=== PATIENT | male | born 1960 | race Caucasian/White ===

== ENCOUNTER 2020-08-07 06:48 | Outpatient (CLI) | payer OTHER, SELFPAY ==
--- NOTE | ~2020-08-07 | MR_ITS ---
EXAMINATION: MR foot RT wo con DATE: 08/07/2020 08:03 INDICATION: Right foot osteoarthritis. TECHNIQUE: Magnetic resonance imaging (MRI) of the right foot was performed without intravenous contr ast. Sequences included sagittal STIR FSE and T1-weighted FSE and short-axis and long-axis T1-weighte d FSE and T2-weighted FS FSE. COMPARISON: None FINDINGS: There is an ulcer plantar to head of second metatarsal. There is dorsal dislocation of seco nd proximal phalanx with respect to the metatarsal. There are fractures of the heads of the second, t hird, and fourth metatarsals. The distal fracture fragment of third metatarsal demonstrates dorsal di splacement, impaction, and periosteal reaction. There is bone marrow edema involving the majority of second metatarsal and the proximal portion of second proximal phalanx. There is an effusion of second metatarsophalangeal joint that is contiguous with inflammation from the plantar ulcer. There is mild osteoarthritis of some of the interphalangeal joints and some of the midfoot joints. There is modera te osteoarthritis of first metatarsophalangeal joint and fourth and fifth tarsometatarsal joints. Lis franc ligament is intact. There is complete tear of the flexor tendons at second proximal interphalan geal joint. There is moderate to severe fatty atrophy of the musculature. There is edema of the muscu lature, consistent with [id number] denervation. There is subcutaneous edema with a dorsal pr edominance. IMPRESSION: 1. Ulcer plantar to head of second metatarsal with osteomyelitis of second metatarsal and base of sec ond proximal phalanx. 2. Dislocation of second metatarsophalangeal joint. Complete tear of the flexor tendons at second pro ximal interphalangeal joint. 3. Fractures of the heads of the second, third, and fourth metatarsals. Reviewed, dictated and finalized at location A. [facility] IMPRESSION: 1. Ulcer plantar to head of second metatarsal with osteomyelitis of second meta tarsal and base of second proximal phalanx. 2. Dislocation of second metatarsophalangeal joint. Complete tear of the flexor tendons at second proximal interphalangeal joint. 3. Fractures of the heads of the second, third, and fourth metatarsals.
== END 2020-08-07 06:49 | disposition home or self-care (01) ==
PROVIDERS: Visit Provider Podiatrist Foot & Ankle Surgery
DX: M86.171 Other acute osteomyelitis, right ankle and foot (principal); S92.321A Displaced fracture of second metatarsal bone, right foot, initial encounter for closed fracture; S92.331A Displaced fracture of third metatarsal bone, right foot, initial encounter for closed fracture; S92.341A Displaced fracture of fourth metatarsal bone, right foot, initial encounter for closed fracture; X58.XXXA Exposure to other specified factors, initial encounter
CPT/HCPCS: 73718

== ENCOUNTER 2020-09-11 07:36 | Outpatient (RCR) | payer OTHER, SELFPAY ==
[2020-08-10 13:34] VITALS: BMI 38.2
--- NOTE | 2020-09-18 09:49 | PCWOUND ---
WOCN NOTE Patient spouse left message to cancel. patient is not feeling well. she states patient will back to reschedule.
== END 2020-10-23 12:42 | disposition home or self-care (01) ==
LOC: ANHWOC 07:36
PROVIDERS: Visit Provider Podiatrist Foot & Ankle Surgery
DX: E11.621 Type 2 diabetes mellitus with foot ulcer (principal); L97.519 Non-pressure chronic ulcer of other part of right foot with unspecified severity
CPT/HCPCS: 99212; 99213; A9270; G0463

== ENCOUNTER 2022-07-08 10:20 | Emergency (ER) | payer OTHER, SELFPAY ==
[2022-07-08 10:34] VITALS: BP 171/110; PULSE 120; RESP 16; TEMP 36.6; O2SAT 98
--- NOTE | 2022-07-08 10:48 | ED.SKABFB ---
HPI - Skin/Abscess/Foreign Bdy General Chief complaint: Skin/Abscess/Foreign Body Stated complaint: rt shoulder infection Time Seen by Provider: 07/08/22 10:48 Source: patient and RN notes reviewed Mode of arrival: ambulatory Limitations: dementia History of Present Illness HPI narrative: 62-year-old male with history of diabetes presents with concern for a skin infection on his right upper arm. He reports it has been there for approximately 1 week, his has gotten some pus out of it. He denies general malaise, fever body aches, chills. MD complaint: abscess/boil Related Data Home Medications Medication Instructions Recorded Confirmed diazepam 2 mg tablet mg 07/08/22 Allergies Allergy/AdvReac Type Severity Reaction Status Date / Time ALEXANDRA Inhibitors Allergy Unknown Verified 10/29/18 09:55 No Known Allergies Allergy Unverified 07/29/18 09:49 Review of Systems Review of Systems: CONSTITUTIONAL: Denies malaise, chills, sweats, or fever. CARDIOVASCULAR: Denies chest pain, palpitations, or edema. RESPIRATORY: Denies cough or dyspnea. SKIN: Reports redness, swelling, purulent drainage to the right posterior upper arm. Denies vesicles, bullae, numbness, pain beyond proportion MUSCULOSKELETAL: Denies joint pain or myalgia. NEUROLOGIC: Denies headache. All systems reviewed & are unremarkable except as noted in HPI and below PMFSH Family History Family History (Updated 02/23/16 @ 10:51 by DOCTOR UNKNOWN) Other Family history of obesity Family history of type 2 diabetes mellitus Social History Social History Smoking status: Never smoker Alcohol intake: current Gender identity (if verbalized by the patient): Male Sexual Orientation (if Verbalized by the Patient): Straight or Heterosexual Comments At time of signature, agree with nursing past medical, surgical, social and family history. There is no relevant family history pertinent to the presenting complaint Exam Narrative: GENERAL: Well-appearing, well-nourished, and in no acute distress. HEAD: Normocephalic, atraumatic. EYES: PERRLA, conjunctivae clear ENT: Mucous membranes moist. NECK: Supple. No lymphadenopathy CHEST: Clear to auscultation. No respiratory distress. HEART: Regular rate and rhythm. SKIN: Warm, dry. 10 cm x 7 cm area of Erythema, induration, tenderness, warmth with sharp margins noted posterior right upper arm. No vesicles, bullae, necrosis, ecchymosis, crepitus noted. NEURO: Alert and oriented x3. PSYCH: Normal mood and affect Course Course Emergency Course: Patient is aware of diagnosis, understands and agrees to treatment plan. Anticipatory guidance given. Patient agrees to follow-up as directed and is aware of reasons to seek care at the emergency department. Portions of this record may have been created with voice recognition software Level of Care: Express Care Visit Vital Signs Vital signs: Vital Signs Temperature 97.9 F 07/08/22 10:34 Pulse Rate 120 H 07/08/22 10:34 Respiratory Rate 16 07/08/22 10:34 Blood Pressure 171/110 H 07/08/22 10:34 Pulse Oximetry 98 07/08/22 10:34 Temperature 97.9 F 07/08/22 10:34 Pulse Rate 120 H 07/08/22 10:34 Respiratory Rate 16 07/08/22 10:34 Blood Pressure 171/110 H 07/08/22 10:34 Pulse Oximetry 98 07/08/22 10:34 Reviewed. Procedures Abscess I/D upper extremity: Date of Incision: 07/08/22 Time of Incision: 10:55 Local Anesthetic: lidocaine 1% Amount of anesthesia used (mL): 5 Technique: incised with #11 blade Amount of fluid expressed (mL): 15 Irrigation: Yes Packing used?: none I&D Results: Pus MDM - Skin/Abscess/Foreign Bdy MDM Narrative Medical decision making narrative: Verbal consent was obtained. The indication for the procedure was clinical suspicion for an abscess. The region was anesthetized with 1% lidocaine. The most fluctuant portion of the abscess was inci
== END 2022-07-08 11:33 | disposition home or self-care (01) ==
PROVIDERS: Emergency Provider Nurse Practitioner
DX: L02.413 Cutaneous abscess of right upper limb (principal); I10 Essential (primary) hypertension; E11.9 Type 2 diabetes mellitus without complications
CPT/HCPCS: 10060; 87070; 87075; 87147; 87181; 87186; 87205; 99213; G0463

== ENCOUNTER 2022-09-05 08:32 | Emergency (ER) | payer OTHER, SELFPAY ==
[2022-09-05 08:43] VITALS: BP 162/109; PULSE 114; RESP 24; TEMP 36.1; O2SAT 99
--- NOTE | 2022-09-05 09:02 | ED.ABDPAIN ---
HPI - Abdominal Pain General Chief Complaint: Abdominal Pain Stated Complaint: abdominal pain/blockage Time Seen by Provider: 09/05/22 09:02 Source: patient, RN notes reviewed and old records reviewed Mode of arrival: ambulatory Limitations: no limitations History of Present Illness HPI narrative: 62-year-old male presents to the [facility] with complaints of abdominal pain and concern for a bowel blockage. Patient states he has not had a normal bowel movement in a week. Patient states that he started having cramping and abdominal discomfort Friday. Ate over and . Pain got worse and he tried take a Dulcolax and Colace on Friday. Went to see a pharmacist and has taken other laxatives/bowel preps over the last 3 days. Complains of pain being so bad it feels like he is passing a kidney stone. Tenderness throughout. Reports he has had some liquid stool but nothing solid states it feels like there is a large mass in his rectum. Patient reports that his sugars have been running high as well MD elicited complaint: abdominal pain Related Data Home Medications Medication Instructions Recorded Confirmed diazepam 2 mg tablet mg 07/08/22 losartan 25 mg tablet mg 09/05/22 topiramate 25 mg tablet mg 09/05/22 Allergies Allergy/AdvReac Type Severity Reaction Status Date / Time ALEXANDRA Inhibitors Allergy Unknown Verified 10/29/18 09:55 No Known Allergies Allergy Unverified 07/29/18 09:49 Review of Systems Review of Systems: All systems reviewed & are unremarkable except as noted in HPI and below Constitutional: Constitutional: Reports no additional constitutional complaints Eyes: Eyes: Reports no additional eye complaints ENT: Reports system reviewed and no additional complaints, except as documented Cardiovascular: Cardiovascular: Reports no additional cardiovascular complaints, Denies chest pain and Denies dyspnea Respiratory: Respiratory: Reports no additional respiratory complaints, Denies chest congestion, Denies cough and Denies dyspnea Gastrointestinal: Gastrointestinal: Reports as per HPI, Reports abdominal pain, Reports bloating, Reports constipation, Reports nausea and Denies vomiting Musculoskeletal: Musculoskeletal: Reports no additional musculoskeletal complaints Integumentary/Breasts: Skin/Breast: Reports system reviewed and no additional complaints, except as docu Neurologic: Reports system reviewed and no additional complaints, except as documented Psychiatric: Psychiatric: Reports no additional psychiatric complaints Allergic/Immunologic: Allergic/Immunologic: Reports no additional allergic/immunologic complaints [facility] Past Medical History Medical History (Updated 09/05/22 @ 09:19 by Merary Lozano APRN) Cardiomegaly DM renal manif type II Essential (primary) hypertension Mixed hyperlipidemia Morbid obesity due to excess calories Obesity (BMI 30-39.9) Poor compliance Family History Family History Other Family history of obesity Family history of type 2 diabetes mellitus Social History Social History Smoking status: Never smoker Alcohol intake: current Gender identity (if verbalized by the patient): Male Sexual Orientation (if Verbalized by the Patient): Straight or Heterosexual Comments At the time of my signature, I reviewed and agree with the nursing past medical, surgical, social, and family history. There is no relevant family history pertinent to the patient complaint. Exam Const: General: no acute distress, well developed, alert, uncomfortable, well groomed, well nourished and underweight Nutritional Appearance: well nourished and obese Orientation/consciousness: patient oriented x3 Limitations: no limitations HENMT: Head: normal to inspection Ears: hearing grossly normal bilaterally and external ears normal Face/Nose/Sinus: Normal ex
== END 2022-09-05 09:10 | disposition left against medical advice (07) ==
PROVIDERS: Emergency Provider Nurse Practitioner
DX: R10.84 Generalized abdominal pain (principal); I51.7 Cardiomegaly; E11.29 Type 2 diabetes mellitus with other diabetic kidney complication; N28.9 Disorder of kidney and ureter, unspecified; I10 Essential (primary) hypertension; E78.2 Mixed hyperlipidemia; E66.01 Morbid (severe) obesity due to excess calories; Z68.35 Body mass index [BMI] 35.0-35.9, adult
CPT/HCPCS: 99211; G0463

== ENCOUNTER 2023-06-25 22:25 | Emergency (ER) | payer OTHER, SELFPAY ==
[2023-06-25] VITALS (7 sets, daily range): BP systolic 137–169; BP diastolic 75–101; PULSE 91–105; RESP 14–23; TEMP 36.4; O2SAT 100
--- NOTE | 2023-06-25 22:34 | ECG_ITS ---
Measurements Intervals Berger Rate: 97 P: KS: 248 QRS: -7 QRSD: 76 T: 18 QT: 347 QTc: 442 Interpretive Statements SINUS RHYTHM WITH FIRST-DEGREE AV BLOCK BASELINE ARTIFACT LOW QRS VOLTAGE IN PRECORDIAL LEADS [QRS DEFLECTION < 1.0 mV IN CHEST LEADS] INFERIOR MYOCARDIAL INFARCTION , PROBABLY OLD [40+ ms Q WAVE AND/OR ST/T ABNORMALITY IN II/aVF] ABNORMAL ECG NO PREVIOUS ECG AVAILABLE FOR COMPARISON Electronically Signed On 06-26-2023 17:12:20 CDT by Kirill Bess M.D.
[2023-06-25] MEDS: EPINEPHrine HCL INJ 1 MG/ML AMPUL (22:39)
--- NOTE | 2023-06-25 23:37 | PC.NURSE ---
This RN assumed care of pt at this time.
--- NOTE | 2023-06-26 00:20 | ED.ALLEREA ---
HPI - Allergic Reaction General Chief complaint: Allergic Reaction Stated complaint: SHORTNESS OF BREATH Time Seen by Provider: 06/25/23 23:13 Source: patient and family History of Present Illness HPI narrative: Patient ate cashews (something he has eaten before) and shortly thereafter noticed throat swelling and difficulty breathing. Took 50mg Benadryl. Initially felt to have dysphonia but improved. He had immediate nasal congestion and throat/tongue swelling. could appreciate tongue and lip swelling but denies tongue protruding from mouth. No new meds. No audible wheezes but sounded garbled per . No fevers. Takes losartan; previously on ACEI but DC's due to cough. Is currently taking doxycycline for an infected toe on right foot and recently completed clindamycin (last dose Mon AM); has taken doxy befor - no new meds. Managed secretions. Has been taking Cialis for 6 months (initially 25-30mg PRN but now 5mg /day). NO GI symptoms. Works for [employer] Related Data Home Medications Medication Instructions Recorded Confirmed diazepam 2 mg tablet 2 mg PO DAILY 07/08/22 09/05/22 losartan 25 mg tablet 25 mg PO DAILY 09/05/22 09/05/22 topiramate 25 mg tablet 25 mg PO DAILY 09/05/22 09/05/22 Allergies Allergy/AdvReac Type Severity Reaction Status Date / Time ALEXANDRA Inhibitors Allergy Unknown Cough Verified 06/25/23 22:33 [facility] Past Medical History Medical History (Updated 06/27/23 @ 00:00 by Vandana Graham) Cardiomegaly DM renal manif type II Essential (primary) hypertension Mixed hyperlipidemia Morbid obesity due to excess calories Obesity (BMI 30-39.9) Poor compliance Family History Family History Other Family history of obesity Family history of type 2 diabetes mellitus Social History Social History Smoking status: Never smoker Alcohol intake: current Gender identity (if verbalized by the patient): Male Sexual Orientation (if Verbalized by the Patient): Straight or Heterosexual Exam Const: General: healthy appearing and alert; No diaphoretic or ill appearing Nutritional Appearance: obese Orientation/consciousness: patient oriented x3 and No confusion Limitations: no limitations HENMT: Head: normal to inspection Ears: external ears normal Face/Nose/Sinus: Normal external nose present Mouth: Yes lip normal and Yes moist mucous membranes Other: gross auditory acuity intact Eyes: Conjunctivae: conjunctivae normal Neck: Neck: normal visual inspection Resp: Effort & Inspection: normal respiratory effort, not labored, no retractions, not tachypneic and no use of accessory muscles Auscultation: clear to auscultation bilaterally and no wheezes Other: no bronchorea/bronchospasm Cardio: Rate: tachycardic GI: GI Palp: Yes Soft to palpation Skin: General skin exam: normal color, no jaundice and no pallor Rashes: no rashes Other: no hives/urticaria Neuro: General: patient oriented x3 and moves all extremities Extrem: General: normal to inspection Psych: Mental Status: mental status grossly normal Affect: normal affect, No Sad affect present and No Anxious affect present Attitude: cooperative Course Vital Signs Vital signs: Vital Signs Temperature 97.5 F L 06/25/23 22:28 Pulse Rate 105 H 06/25/23 22:28 Respiratory Rate 21 H 06/25/23 22:28 Blood Pressure 169/101 H 06/25/23 22:28 Pulse Oximetry 100 06/25/23 22:28 Oxygen Delivery Room Air 06/25/23 22:28 Temperature 98.6 F 06/26/23 01:15 Pulse Rate 85 06/26/23 01:15 Respiratory Rate 20 06/26/23 01:15 Blood Pressure 147/78 H 06/26/23 01:15 Pulse Oximetry 100 06/26/23 01:15 Oxygen Delivery Room Air 06/25/23 22:28 MDM - Allergic Reaction MDM Narrative Medical decision making narrative: Patient presents with tongue/lip swelling and throat swelling in additi
[2023-06-26] MEDS: methylPREDNISolone SOD SUCC 125 MG VIAL IV PUSH (00:34)
[2023-06-26] MEDS: FAMOTIDINE 20 MG/2 ML VIAL IV PUSH (00:54)
[2023-06-26 01:15] VITALS: BP 147/78; PULSE 85; RESP 20; TEMP 37; O2SAT 100
== END 2023-06-26 01:16 | disposition home or self-care (01) ==
LOC: ANHED 06-26 00:25
PROVIDERS: Emergency Provider Student in an Organized Health Care Education/Training Program
DX: T78.2XXA Anaphylactic shock, unspecified, initial encounter (principal); E11.9 Type 2 diabetes mellitus without complications; E78.2 Mixed hyperlipidemia
CPT/HCPCS: 36415; 93005; 96374; 96375; 99284; J0171; J2930